=== PATIENT | female | born 1950 | race Two or more races ===

== ENCOUNTER 2018-01-07 13:33 | Inpatient (IN) | payer OTHER ==
[~2018-01-07] VITALS: Ht 121.9 cm; Wt 72.6 kg
[2018-01-07] MEDS ORDERED: SYNTHROID88 MCG PO (14:14)
[2018-01-07] MEDS ORDERED: GLUCOTROL10 MG PO (14:14)
[2018-01-07] MEDS ORDERED: TRAMADOL HCL50 MG PO (14:15)
[2018-01-07] MEDS ORDERED: PERCOCE (14:15)
[2018-01-07] MEDS ORDERED: PROSAC PO (14:16)
[2018-01-28] MEDS ORDERED: NEURONTIN800 MG PO (16:48)
[2018-01-28] MEDS ORDERED: COLACE100 MG PO (16:48)
[2018-01-28] MEDS ORDERED: AMOX-CLAV 875-1 EACH PO (16:50)
[2018-01-28] MEDS ORDERED: CLONAZEPAM1 MG PO (16:50)
[2018-01-28] MEDS ORDERED: PERCOCET 5-3251 EACH PO (16:50)
== END 2018-01-30 14:55 | DRG 455 ==
LOC: SURH 01-26 10:00 → O/R 01-28 06:30 → SURH 01-28 10:00 → SURG 01-28 17:29
PROVIDERS: Orthopaedic Surgery Orthopaedic Surgery of the Spine
PROC: 0SG0071 Fusion of Lumbar Vertebral Joint with Autologous Tissue Substitute, Posterior Approach, Posterior Column, Open Approach (ICD-10-PCS; 2018-01-28)
PROC: 0ST20ZZ Resection of Lumbar Vertebral Disc, Open Approach (ICD-10-PCS; 2018-01-28)
PROC: 0SG00AJ Fusion of Lumbar Vertebral Joint with Interbody Fusion Device, Posterior Approach, Anterior Column, Open Approach (ICD-10-PCS; 2018-01-28)
PROC: 07DS3ZZ Extraction of Vertebral Bone Marrow, Percutaneous Approach (ICD-10-PCS; 2018-01-28)
PROC: 0SG00A0 Fusion of Lumbar Vertebral Joint with Interbody Fusion Device, Anterior Approach, Anterior Column, Open Approach (ICD-10-PCS; principal; 2018-01-28 21:15)
DX: M48.061 Spinal stenosis, lumbar region without neurogenic claudication (principal); M51.16 Intervertebral disc disorders with radiculopathy, lumbar region; M43.16 Spondylolisthesis, lumbar region; E11.9 Type 2 diabetes mellitus without complications; I10 Essential (primary) hypertension; E03.8 Other specified hypothyroidism

== ENCOUNTER → 2019-11-01 08:00 | Outpatient (CLI) | payer OTHER ==
[~2019-11-01] VITALS: Ht 134.6 cm; Wt 77.1 kg
[~2019-11-01 08:00] MED LIST: AMOX-CLAV 875-1 EACH PO; CLONAZEPAM0.5 MG PO; CLONAZEPAM1 MG PO; COLACE100 MG PO; FORTAMET500 MG PO; GABAPENT PO; GLIPIZIDE XL5 MG; GLUCOTROL10 MG PO; NEURONTIN600 M1; NEURONTIN800 MG PO; PANADOL PO; PEPCI PO; PERCOCE; PERCOCET 5-3251 EACH PO; PROSAC PO; PROTON PO; SYNTHROID88 MCG PO; TRAMADOL HCL50 MG PO; ZESTRIL5 MG
== END | disposition home or self-care (01) ==
LOC: LAB 08:00 → SURH 11-03 08:30 → EDSTATUS 11-03 08:30
PROVIDERS: ATTEND Orthopaedic Surgery Orthopaedic Surgery of the Spine
DX: M43.07 Spondylolysis, lumbosacral region (principal); Z20.828 Contact with and (suspected) exposure to other viral communicable diseases

== ENCOUNTER 2020-03-28 12:00 | Inpatient (IN) | payer OTHER ==
[~2020-03-28] VITALS: Ht 129.5 cm; Wt 71.7 kg
[2020-04-04] MEDS ORDERED: NEURONTIN800 MG PO ×2 (12:52)
[2020-04-04] MEDS ORDERED: PERCOCET 5-3251 EACH PO ×2 (12:52)
[2020-04-04] MEDS ORDERED: AMOX-CLAV 875-1 EACH PO ×2 (12:52)
[2020-04-04] MEDS ORDERED: DIAZEPAM5 MG PO ×2 (12:52)
[2020-04-04] MEDS ORDERED: COLACE100 MG PO ×2 (12:52)
[2020-04-04] MEDS ORDERED: MEDROLPACK PO ×2 (12:52)
== END 2020-04-06 20:45 | DRG 460 ==
LOC: SURG 04-04 05:30 → O/R 04-04 05:30 → SURG 04-04 15:58
PROVIDERS: ADMIT Orthopaedic Surgery Orthopaedic Surgery of the Spine; ATTEND Orthopaedic Surgery Orthopaedic Surgery of the Spine
PROC: 0SG307J Fusion of Lumbosacral Joint with Autologous Tissue Substitute, Posterior Approach, Anterior Column, Open Approach (ICD-10-PCS; 2020-04-04)
PROC: 0SB40ZZ Excision of Lumbosacral Disc, Open Approach (ICD-10-PCS; 2020-04-04)
PROC: 01NB0ZZ Release Lumbar Nerve, Open Approach (ICD-10-PCS; 2020-04-04)
PROC: 01NR0ZZ Release Sacral Nerve, Open Approach (ICD-10-PCS; 2020-04-04)
PROC: 07DR0ZZ Extraction of Iliac Bone Marrow, Open Approach (ICD-10-PCS; 2020-04-04)
PROC: 0SG30AJ Fusion of Lumbosacral Joint with Interbody Fusion Device, Posterior Approach, Anterior Column, Open Approach (ICD-10-PCS; principal; 2020-04-04 13:00)
DX: M43.17 Spondylolisthesis, lumbosacral region (principal); E11.9 Type 2 diabetes mellitus without complications; I10 Essential (primary) hypertension; M47.897 Other spondylosis, lumbosacral region; M48.07 Spinal stenosis, lumbosacral region; Z79.84 Long term (current) use of oral hypoglycemic drugs

== ENCOUNTER 2020-04-11 16:40 | Emergency (ER) | payer OTHER ==
[~2020-04-11] VITALS: Ht 121.9 cm; Wt 71.7 kg
[~2020-04-11 16:40] MED LIST changes: +DIAZEPAM5 MG PO; +MEDROLPACK PO
== END 2020-04-11 18:33 | disposition home or self-care (01) ==
LOC: ER 16:40
DX: G89.18 Other acute postprocedural pain (principal); M54.5 Low back pain; Z03.818 Encounter for observation for suspected exposure to other biological agents ruled out

== ENCOUNTER 2022-07-02 09:40 | Inpatient (IN) | payer OTHER ==
[~2022-07-02] VITALS: Ht 144.8 cm; Wt 72.6 kg
[2022-07-02] MEDS ORDERED: XANAX0.25 MG PO (11:44)
[2022-07-02] MEDS ORDERED: PROTONIX20 MG PO (11:44)
[2022-07-04] MEDS ORDERED: PERCOCET 5-3251 EACH PO (09:29)
[2022-07-04] MEDS ORDERED: AMOX-CLAV 875-1 EACH PO (09:30)
[2022-07-04] MEDS ORDERED: MEDROLPACK PO (09:30)
[2022-07-04] MEDS ORDERED: NEURONTIN800 MG PO (09:31)
[2022-07-04] MEDS ORDERED: COLACE100 MG PO (09:31)
== END 2022-07-05 22:18 | disposition home or self-care (01) | DRG 519 ==
LOC: SURH 07-04 05:59 → O/R 07-04 05:59 → OB/GYN 07-04 08:00 → PED 07-04 13:26 → O/R 07-04 13:51 → SURH 07-04 15:36
PROVIDERS: ADMIT Orthopaedic Surgery Orthopaedic Surgery of the Spine; ATTEND Orthopaedic Surgery Orthopaedic Surgery of the Spine
PROC: 0QP004Z Removal of Internal Fixation Device from Lumbar Vertebra, Open Approach (ICD-10-PCS; 2022-07-04)
PROC: 0QP104Z Removal of Internal Fixation Device from Sacrum, Open Approach (ICD-10-PCS; 2022-07-04)
PROC: 07DR0ZZ Extraction of Iliac Bone Marrow, Open Approach (ICD-10-PCS; 2022-07-04)
PROC: 4A12X4Z Monitoring of Cardiac Electrical Activity, External Approach (ICD-10-PCS; 2022-07-04)
PROC: 0QB30ZZ Excision of Left Pelvic Bone, Open Approach (ICD-10-PCS; 2022-07-04)
PROC: 00JU0ZZ Inspection of Spinal Canal, Open Approach (ICD-10-PCS; principal; 2022-07-04 08:00)
DX: M54.17 Radiculopathy, lumbosacral region (principal); M96.0 Pseudarthrosis after fusion or arthrodesis; M48.07 Spinal stenosis, lumbosacral region; I10 Essential (primary) hypertension; E03.9 Hypothyroidism, unspecified; E11.9 Type 2 diabetes mellitus without complications; R26.89 Other abnormalities of gait and mobility; Z79.84 Long term (current) use of oral hypoglycemic drugs

== ENCOUNTER 2024-02-19 10:30 | Inpatient (IN) | payer OTHER ==
[~2024-02-19] VITALS: Ht 154.9 cm; Wt 71.7 kg
[~2024-02-19 10:30] MED LIST changes: +PROTONIX20 MG PO; +XANAX0.25 MG PO
[2024-02-19 12:57] VITALS: BP 119/67
[2024-02-19] MEDS ORDERED: ZYLOPRIM100 M1 PO (12:59)
[2024-02-19] MEDS ORDERED: RESTORIL15 MG PO (12:59)
[2024-02-19] MEDS ORDERED: NORVASC5 MG PO (13:00)
[2024-02-19] MEDS ORDERED: PROZAC20 MG PO (13:00)
[2024-02-19] MEDS ORDERED: LIPITOR20 MG PO (13:00)
[2024-02-26] MEDS ORDERED: 0.9 % SODIUM CHLORIDE 1,000 ML IV SCH (07:15)
[2024-02-26] MEDS ORDERED: PROMETHAZINE HCL 50 MG/ML AMPUL IM PRN (07:15)
[2024-02-26] MEDS ORDERED: ENALAPRILAT DIHYDRATE 1.25 MG/ML VIAL IV PRN (07:15)
[2024-02-26] MEDS ORDERED: PERCOCET 5-3251 EACH PO (07:24)
[2024-02-26] MEDS ORDERED: AMOX-CLAV 875-1 EACH PO (07:24)
[2024-02-26] MEDS ORDERED: MEDROLPACK PO (07:25)
[2024-02-26] MEDS ORDERED: COLACE100 MG PO (07:26)
[2024-02-26] MEDS ORDERED: GABAPENTIN100 M2 PO (07:26)
[2024-02-26] MEDS ORDERED: NEURONTIN800 MG PO (07:27)
[2024-02-26] MEDS ORDERED: METHYLPREDNISOLONE SOD SUCC 125 MG VIAL IV ONE ×2 (08:30)
[2024-02-26] MEDS ORDERED: VANCOMYCIN HCL 1,000 MG VIAL IV SCH ×2 (08:30→09:00)
[2024-02-26] MEDS ORDERED: VANCOMYCIN HCL 1,000 MG VIAL IR ONE ×2 (08:30→09:30)
[2024-02-26] MEDS ORDERED: CEFAZOLIN SODIUM 2,000 MG in 0.9 % SODIUM CHLORIDE 100 ML IV ONE (08:30)
[2024-02-26] MEDS ORDERED: METHYLPREDNISOLONE SOD SUCC 125 MG VIAL IV SCH (09:00)
[2024-02-26] MEDS ORDERED: FAMOtidine 20 MG TABLET PO SCH (09:00)
[2024-02-26] MEDS ORDERED: MORPHINE SULFATE 4 MG/ML CARTRIDGE IV SCH (09:00)
[2024-02-26] MEDS ORDERED: CEFAZOLIN SODIUM 1,000 MG in 0.9 % SODIUM CHLORIDE 50 ML IV SCH (09:00)
[2024-02-26] MEDS ORDERED: DOCUSATE SODIUM 100MG CAP PO SCH (09:00)
[2024-02-26] MEDS ORDERED: MORPHINE SULFATE 4 MG/ML VIAL IV ONE ×2 (09:45→11:30)
[2024-02-26] MEDS ORDERED: ISOPROPYL ALCOHOL 30 ML OUNCE TOP ONE (09:45)
[2024-02-26] MEDS ORDERED: ACETAMINOPHEN 500 MG GEL..CAP PO SCH (12:00)
[2024-02-26 18:49] VITALS: BP 113/73; O2SAT 97
[2024-02-26] MEDS ORDERED: GABAPENTIN 800 MG TABLET PO SCH (21:00)
[2024-02-27] VITALS: BP 128/60; O2SAT 99
[2024-02-27] MEDS ORDERED: SODIUM CHLORIDE 0.45 % 1,000 ML IV SCH
[2024-02-27 02:00] VITALS: O2SAT 95
[2024-02-27] MEDS ORDERED: LEVOTHYROXINE SODIUM 88 MCG TABLET PO SCH (06:00)
[2024-02-27] MEDS ORDERED: OxyCODONE HCL/APAP UD (PERCOCET) PO PRN (06:01)
[2024-02-27 08:00] VITALS: BP 128/60; O2SAT 96
[2024-02-27 09:00] VITALS: O2SAT 96
[2024-02-27] MEDS ORDERED: FLUOXETINE HCL 20 MG CAPSULE PO SCH (09:00)
[2024-02-27] MEDS ORDERED: ATORVASTATIN CALCIUM 20 MG TABLET PO SCH (09:00)
[2024-02-27] MEDS ORDERED: TAMSULOSIN HCL 0.4 MG CAP PO SCH (09:00)
[2024-02-27] MEDS ORDERED: AMLODIPINE BESYLATE 5 MG TABLET PO SCH (09:00)
== END 2024-02-27 14:20 | disposition home or self-care (01) | DRG 451 ==
LOC: ADM 10:30 → SURH 02-25 10:30 → EDSTATUS 02-25 10:30 → CIR.AMB 02-25 10:30 → O/R 02-26 05:00 → SURH 02-26 16:04
PROVIDERS: ADMIT Orthopaedic Surgery Orthopaedic Surgery of the Spine; ATTEND Orthopaedic Surgery Orthopaedic Surgery of the Spine
PROC: 0SG807Z Fusion of Left Sacroiliac Joint with Autologous Tissue Substitute, Open Approach (ICD-10-PCS; principal; 2024-02-26 07:00)
PROC: 4A12X4Z Monitoring of Cardiac Electrical Activity, External Approach (ICD-10-PCS; 2024-02-27)
DX: M46.1 Sacroiliitis, not elsewhere classified (principal); I10 Essential (primary) hypertension; E03.9 Hypothyroidism, unspecified